=== PATIENT | female | born 1955 | race Two or more races ===

== ENCOUNTER 2017-06-17 12:12 | Emergency (ER) | payer OTHER ==
[~2017-06-17] VITALS: Ht 170.2 cm; Wt 59.9 kg
[2017-06-17] MEDS ORDERED: KETOROLAC 15 MG/ML VIAL. IV ONE (13:00)
[2017-06-17] MEDS ORDERED: ONDANSETRON PF 4 MG/2 ML VIAL. IV ONE (13:00)
[2017-06-17] MEDS ORDERED: IV NORMAL SALINE 1000ML BAG 1,000 ML IV ONE (13:00)
[2017-06-17 13:14] LABS: BILIRUBIN,URINE NEGATIVE (NEG); GLUCOSE,URINE NEGATIVE (NEG); NITRITE,URINE POSITIVE (NEG); PROTEIN,URINE 100 mg/dL (NEG-TRACE)
[2017-06-17 13:15] LABS: BASO % 0 % (0-3); EOS % 0 % (0-3); HEMATOCRIT 33.8 % (36.0-47.0); HEMOGLOBIN 11.6 g/dL (12.0-15.5); LYMPH # 0.7 x10^3/uL (1.0-4.8); LYMPH % 6 % (24-48); MEAN CORPUSCULAR HEMOGLOBIN 31 pg (25-35); MEAN CORPUSCULAR HGB CONC 34 g/dL (31-37); MEAN CORPUSCULAR VOLUME 91 fL (79-100); MONO % 8 % (0-9); NEUT % 86 % (31-73); PLATELET COUNT 215 x10^3/uL (140-400); RED BLOOD COUNT 3.72 x10^6/uL (3.50-5.40); RED CELL DISTRIBUTION WIDTH 12.8 % (11.5-14.5); WHITE BLOOD COUNT 12.6 x10^3/uL (4.0-11.0)
[2017-06-17 13:24] LABS: CALCIUM 8.8 mg/dL (8.5-10.1); CREATININE 0.8 mg/dL (0.6-1.0); GFR 73.2; POTASSIUM 3.7 mmol/L (3.5-5.1)
[2017-06-17 13:27] LABS: ALBUMIN 3.3 g/dL (3.4-5.0); ALBUMIN/GLOBULIN RATIO 0.8 (1.0-1.7); TOTAL BILIRUBIN 1.1 mg/dL (0.2-1.0); TOTAL PROTEIN 7.4 g/dL (6.4-8.2)
[2017-06-17 13:40] LABS: BACTERIA,URINE MANY /HPF (0-FEW); WBC,URINE TNTC /HPF (0-4)
--- NOTE | 2017-06-17 14:25 | RAD ---
CT study of the abdomen and pelvis without contrast Clinical indications: Right flank pain. Possible urinary tract stone. Technique: Noncontrast helical CT scanning of the abdomen and pelvis was performed. Without contrast, the sensitivity to detect organ pathology and GI tract pathology is decreased. PQRS Compliance Statement: One or more of the following individualized dose reduction techniques were utilized for this examination: 1. Automated exposure control 2. Adjustment of the mA and/or kV according to patient size 3. Use of iterative reconstruction technique Comparison: None available. Findings: The pancreas and liver and spleen are homogeneous in appearance on this noncontrast study. The gallbladder is normal and no extra hepatic biliary ductal dilatation is seen. No adrenal mass is seen. No hydronephrosis or hydroureter is seen. There is perinephric inflammatory change around the right kidney especially the upper pole. This could be due to pyelonephritis. Otherwise no renal mass is seen on either side on this noncontrast study. No renal stone or ureteral stone is evident. Urinary bladder is not abnormally distended. No uterine mass or fibroid is seen. No dominant ovarian cyst or mass is evident. The appendix is normal. No obstructive bowel pattern is seen. Sigmoid diverticulosis is seen without diverticulitis. No free air or free fluid or mesenteric inflammatory change is seen. No lung base consolidation is seen. No osteolytic process is seen. IMPRESSION: Perinephric inflammatory change is seen around the right kidney especially the upper pole. This may be seen with pyelonephritis. No urinary tract stone or hydronephrosis or hydroureter is seen otherwise.
--- NOTE | 2017-06-17 15:01 | PHYS DOC ---
Past Medical History Past Medical History: No Pertinent History Past Surgical History: No Surgical History Alcohol Use: Occasionally Drug Use: None Adult General Chief Complaint Chief Complaint: FLANK PAIN HPI HPI Patient is a 61 year old female who presents here today complaining of dysuria for approximately 2 days. Patient is also complaining of some right flank discomfort as well. Patient denies any nausea vomiting diarrhea. Patient reports she's had some tactile feversshakes or chills. Patient has any chest pain or shortness of breath. Patient denies any abdominal discomfort. Patient reports that she's been tolerating by mouth's well without any difficulty. Patient denies any history of hypertension diabetes liver longer kidney problems. Patient does not smoke drink or do any drugs. Patient denies any surgeries. Patient has no known drug allergies. Review of systems: Constitutional: Denies fever or chills Eyes: Denies change in visual acuity, redness, or eye pain HENT: Denies nasal congestion or sore throat All the other review systems are negative except as documented in the history of present illness portion. Physical exam: Constitutional: Well developed, well nourished, no acute distress, non-toxic appearance. HENT: Normocephalic, atraumatic, bilateral external ears normal, nose normal. Eyes:EOMI, conjunctiva normal, no discharge. Neck: Normal range of motion, no tenderness, supple, no stridor. Cardiovascular:Heart rate regular rhythm, Lungs & Thorax: Bilateral breath sounds clear to auscultation Abdomen: Bowel sounds normal, soft, no tenderness, no masses, no pulsatile masses. Skin: Warm, dry, no erythema, no rash. Back: No tenderness, no CVA tenderness. Extremities: No tenderness, no cyanosis, no clubbing, ROM intact, no edema. Neurologic: Alert and oriented X 3, normal motor function, normal sensory function, no focal deficits noted. Psychologic: Affect normal, judgement normal, mood normal. Patient's ER physical exam is significant for some mild tenderness to palpation her right flank. Mild suprapubic discomfort to palpation. Patient's abdomen was soft nondistended no rebound or guarding. Patient does not present with any signs or symptoms of be consistent with an acute surgical abdomen or retroperitonitis. Patient's ER workup is been significant for an abnormal urinalysis consistent with urinary tract infection. Patient's CBC and chemistry are within normal limits. CT scan of the abdomen pelvis were unremarkable for any acute pathology. Assessment and plan This is a 61-year-old female who presents to the ER today secondary to urinary tract infection symptoms. Patient reports that she started increasing her fluid intake secondary to dysuria. Patient's ER workup is consistent with UTI. Patient is given a dose of IV Rocephin here in the ED and will be sent home with a prescription for Keflex as well as ibuprofen for the pain. Patient will be also given a prescription for Pyridium. Current Medications Current Medications Current Medications Medications (Trade) Dose Ordered Sig/Librado Start Time Stop Time Status Last Admin Dose Admin Ceftriaxone Sodium 50 ml @ 100 mls/hr 1X ONCE 06/17/17 13:00 06/17/17 13:29 DC 06/17/17 13:51 100 MLS/HR Ketorolac Tromethamine (Toradol) 15 mg 1X ONCE 06/17/17 13:00 06/17/17 13:04 DC 06/17/17 13:52 15 MG Ondansetron HCl (Zofran) 4 mg 1X ONCE 06/17/17 13:00 06/17/17 13:04 DC 06/17/17 13:53 4 MG Sodium Chloride 1,000 ml @ 1,000 mls/hr 1X ONCE 06/17/17 13:00 06/17/17 13:59 DC 06/17/17 13:52 1,000 MLS/HR Allergies Allergies Allergies Coded Allergies Type Severity Reaction Last Updated Verified No Known Drug Allergies 06/17/17 No Current Patient Data Vital Signs Vital Signs Date Time Temp Pulse Resp B/P (MAP) Pulse Ox O2 Delivery O2 Flow Rate FiO2 06/17/17 12:58 98.3 112 18 122/62 (82) 96 Room Air 98.3 Lab Values Laboratory Tests Test 06/17/17 13:05 White Blood Count 12.6 x10^3/uL (4.0-11.0) H Red Blood Count 3.72 x10^6/uL (3.50-5.40) Hemoglobin 11.6 g/dL (12.0-15.5) L Hematocrit 33.8 % (36.0-47.0) L Mean Corpuscular Volume 91 fL (79-100) Mean Corpuscular Hemoglobin 31 pg (25-35) Mean Corpuscular Hemoglobin Concent 34 g/dL (31-37) Red Cell Distribution Width 12.8 % (11.5-14.5) Platelet Count 215 x10^3/uL (140-400) Neutrophils (%) (Auto) 86 % (31-73) H Lymphocytes (%) (Auto) 6 % (24-48) L Monocytes (%) (Auto) 8 % (0-9) Eosinophils (%) (Auto) 0 % (0-3) Basophils (%) (Auto) 0 % (0-3) Neutrophils # (Auto) 10.9 x10^3uL (1.8-7.7) H Lymphocytes # (Auto) 0.7 x10^3/uL (1.0-4.8) L Monocytes # (Auto) 1.0 x10^3/uL (0.0-1.1) Eosinophils # (Auto) 0.0 x10^3/uL (0.0-0.7) Basophils # (Auto) 0.0 x10^3/uL (0.0-0.2) Platelet Estimate Pending Urine Collection Type Unknown Urine Color Yellow Urine Clarity Cloudy Urine pH 6.0 Urine Specific [place] 1.020 Urine Protein 100 mg/dL (NEG-TRACE) Urine Glucose (UA) Negative mg/dL (NEG) Urine Ketones (Stick) 15 mg/dL (NEG) Urine Blood Large (NEG) Urine Nitrite Positive (NEG) Urine Bilirubin Negative (NEG) Urine Urobilinogen Dipstick 1.0 mg/dL (0.2 mg/dL) Urine Leukocyte Esterase Large (NEG) Urine RBC /HPF (0-2) Urine WBC Tntc /HPF (0-4) Urine Bacteria Many /HPF (0-FEW) Urine Mucus Mod /LPF Sodium Level 135 mmol/L (136-145) L Potassium Level 3.7 mmol/L (3.5-5.1) Chloride Level 100 mmol/L (98-107) Carbon Dioxide Level 26 mmol/L (21-32) Anion Gap 9 (6-14) Blood Urea Nitrogen 16 mg/dL (7-20) Creatinine 0.8 mg/dL (0.6-1.0) Estimated GFR (Cockcroft-Gault) 73.2 BUN/Creatinine Ratio 20 (6-20) Glucose Level 119 mg/dL (70-99) H Calcium Level 8.8 mg/dL (8.5-10.1) Total Bilirubin 1.1 mg/dL (0.2-1.0) H Aspartate Amino Transferase (AST) 26 U/L (15-37) Alanine Aminotransferase (ALT) 24 U/L (14-59) Alkaline Phosphatase 72 U/L (46-116) Total Protein 7.4 g/dL (6.4-8.2) Albumin 3.3 g/dL (3.4-5.0) L Albumin/Globulin Ratio 0.8 (1.0-1.7) L Lipase 114 U/L (73-393) Laboratory Tests 06/17/17 13:05 Laboratory Tests 06/17/17 13:05 EKG EKG [] Radiology/Procedures Radiology/Procedures [] Course & Med Decision Making Course & Med Decision Making Pertinent Labs and Imaging studies reviewed. (See chart for details) [] Dragon Disclaimer Dragon Disclaimer This electronic medical record was generated, in whole or in part, using a voice recognition dictation system. Departure Departure Impression: Primary Impression: Urinary tract infection Disposition: HOME, SELF-CARE Condition: IMPROVED Referrals: CRYSTAL DAVISON APRN (PCP) Patient Instructions: Urinary Tract Infection Scripts Phenazopyridine Hcl (PYRIDIUM) 200 Mg Tablet 200 MG PO TID, #9 TAB Prov: MARILU MEJIA MD 06/17/17 Cephalexin (KEFLEX) 500 Mg Capsule 500 MG PO QID for 10 Days, CAP Prov: MARILU MEJIA MD 06/17/17 Ibuprofen (IBUPROFEN) 600 Mg Tablet 600 MG PO PRN Q6HRS Y for PAIN, #20 TAB Prov: MARILU MEJIA MD 06/17/17 MARILU MEJIA MD Jun 17, 2017 15:01
[2017-06-17] MEDS ORDERED: IBUP-1007 PO (15:03)
[2017-06-17] MEDS ORDERED: PHEN-318 PO (15:03)
[2017-06-17] MEDS ORDERED: CEPH-264 PO (15:03)
[2017-06-17 15:16] LABS: PLT ESTIMATE ADEQUATE (ADEQUATE)
[2017-06-17 15:17] VITALS: BP 100/56
== END 2017-06-17 15:27 | disposition home or self-care (01) ==
LOC: ER 12:12
DX: N39.0 Urinary tract infection, site not specified (principal)
CPT/HCPCS: 36415; 74176; 80053; 81001; 83690; 85007; 85025; 87086; 96365; 96375; 99285; J0690; J1885; J2405; J7030; 87186

== ENCOUNTER → 2019-10-28 | Outpatient (CLI) | payer OTHER ==
[~2019-10-28] MED LIST: CEPH-264 PO; IBUP-1007 PO; PHEN-318 PO
--- NOTE | 2019-10-28 14:53 | KCIC ---
EXAM: Bilateral screening mammogram. HISTORY: 63 year-old presents for screening mammography. TECHNIQUE: Full-field digital craniocaudal and mediolateral oblique views of both breasts are obtained for evaluation. Computer aided detection with Pump[employer] software version 9.3 was applied. COMPARISON: 07/05/2016 BREAST PARENCHYMAL DENSITY: Level B - Scattered fibroglandular densities. FINDINGS: There is no new suspicious mass, microcalcification or region of architectural distortion. IMPRESSION: BI-RADS Category 2: Benign finding(s). RECOMMENDATION: Annual mammography is recommended. If your mammogram demonstrates that you have dense breast tissue, which could hide abnormalities, and if you have other risk factors for breast cancer that have been identified, you might benefit from supplemental screening tests that may be suggested by your ordering physician. Dense breast tissue, in and of itself, is a relatively common condition. This information is not provided to cause undue concern, but rather to raise your awareness and to promote discussion with your physician regarding the presence of other risk factors, in addition to dense breast tissue. A report of your mammography results will be sent to you and your physician. You should contact your physician if you have any questions or concerns regarding this report. Mammography is a sensitive method for finding small breast cancers, but it does not detect them all and is not a substitute for careful clinical examination. A negative mammogram does not negate a clinically suspicious finding and should not result in delay in biopsying a clinically suspicious abnormality. PQRS compliance statement - Patient information was entered into a reminder system with a target due date for the next mammogram. "Our facility is accredited by the [employer] Mammography [employer]." Electronically signed by: Paty Hodge MD (10/28/2019 2:50 PM) [email or web address]
== END | disposition home or self-care (01) ==
LOC: KCIC MAMMO 13:53
PROVIDERS: ATTEND Family Medicine
DX: Z12.31 Encounter for screening mammogram for malignant neoplasm of breast (principal)
CPT/HCPCS: 77067